=== PATIENT | female | born 1970 | race Caucasian/White ===

== ENCOUNTER 2020-10-06 07:36 | Day surgery (SDC) | payer BC ==
[~2020-10-06 07:36] MED LIST: IBUP600 PO; Robaxin500 MG PO
[2020-10-17 09:38] LABS: Performing Lab SYMBIODX; Test Name FISH
[2020-10-25] MEDS ORDERED: DULO60 PO (13:17)
[2020-10-25] MEDS ORDERED: MELO7.5 PO (13:17)
[2020-10-25] MEDS ORDERED: Amitriptyline H10 MG PO (13:17)
[2020-10-25] MEDS ORDERED: MULVITA PO (13:17)
[2020-10-25] MEDS ORDERED: PRAM.125 PO (13:18)
[2020-10-25] MEDS ORDERED: ZOLP5 PO (13:18)
[2020-10-25] MEDS ORDERED: OMEP20ER PO (13:18)
== END 2020-10-06 23:07 | disposition home or self-care (01) ==
LOC: MOI US 07:36 → MOI MAM 08:00 → MOI US 08:00 → MOI MAM 08:45 → MOI US 23:07
PROVIDERS: Pathology Clinical Pathology/Laboratory Medicine
DX: C50.912 Malignant neoplasm of unspecified site of left female breast (principal); Z17.0 Estrogen receptor positive status [ER+]
CPT/HCPCS: 19083; 77065; 88305; 88342; 88360; 88374; A4648

== ENCOUNTER 2020-10-23 09:54 | Day surgery (SDC) | payer BC ==
[2020-10-25] MEDS ORDERED: DULO60 PO (13:17)
[2020-10-25] MEDS ORDERED: Amitriptyline H10 MG PO (13:17)
[2020-10-25] MEDS ORDERED: MULVITA PO (13:17)
[2020-10-25] MEDS ORDERED: MELO7.5 PO (13:17)
[2020-10-25] MEDS ORDERED: PRAM.125 PO (13:18)
[2020-10-25] MEDS ORDERED: OMEP20ER PO (13:18)
[2020-10-25] MEDS ORDERED: ZOLP5 PO (13:18)
== END 2020-10-23 23:05 | disposition home or self-care (01) ==
LOC: MOI US 09:54
DX: C50.112 Malignant neoplasm of central portion of left female breast (principal)
CPT/HCPCS: 19285; 77065; A4648

== ENCOUNTER 2020-10-31 08:50 | Day surgery (SDC) | payer BC ==
[~2020-10-31] VITALS: Ht 170.2 cm; Wt 102.6 kg
[~2020-10-31 08:50] MED LIST changes: +Amitriptyline H10 MG PO; +DULO60 PO; +MELO7.5 PO; +MULVITA PO; +OMEP20ER PO; +PRAM.125 PO; +ZOLP5 PO
[2020-10-31] MEDS ORDERED: DIAZ10 PO (09:51)
--- NOTE | 2020-10-31 10:23 | NUR ---
Ambulatory in [facility] warming gown applied. Surgical site prepped with 2% Chlorhexidine cloth wipe. History, Chart, Medications and Allergies reviewed before start of procedure.History, Chart, Medications and Allergies reviewed before start of procedure.Lungs clear T/O to Auscultation. Patient confirms NPO status and agrees with scheduled surgery. Pre-Op teaching done. Pt verbalizes understanding. Patient States Post-Procedure ride home has been arranged. Patient reports completing Chlorhexadine shower X2 prior to admission to hospital.
--- NOTE | 2020-10-31 14:18 | NUR ---
JOSEPHINE RN REPORTED 25MCG FENTANYL DOSES DID NOT BRING PATIENT PAIN DOWN. PT ABLE TO REPOSITION SELF INTO A BETTER BREATHING POSITION. 02 SATS 96% ON RA. PT DENIES SOB. Dressing to procedure site clean, dry, intact with no visible drainage, swelling, erythema or bruising noted.BREAST BINDER IN PLACE. PT TOLERATING PO FOOD AND FLUID. WILL GIVE PO PAIN MED SOON AVAILABLE. GAVE PT 50MCGS OF IV FENT. WILL CONTINUE TO MONITOR.
--- NOTE | 2020-10-31 14:50 | NUR ---
PT RECEIVED 2 PAIN PILLS AND A TOTAL OF 100MCGS FENTANYL FOR UNCONTROLLED PAIN WITH GOOD RESULTS. PAIN AT TOLERATED LEVEL AT TIME OF DISCHARGE. Dressing to procedure site clean, dry, intact with no visible drainage, swelling, erythema or bruising noted. Discharge instructions reviewed with patient. Patient verbalizes understanding. Copy given to patient to take home. Patient up to Ambulate independently. Gait steady. Patient States Post-Procedure ride home has been arranged. Discharged via wheelchair to private car for ride home. ALL BELONINGS SENT HOME WITH PATIENT.
== END 2020-10-31 22:56 | disposition home or self-care (01) ==
LOC: NM 08:50 → ORSCMMR 08:50 → NM 09:00
PROVIDERS: Surgery
PROC: 0HBU0ZZ Excision of Left Breast, Open Approach (ICD-10-PCS; principal; 2020-10-31 10:00)
PROC: 07B60ZX Excision of Left Axillary Lymphatic, Open Approach, Diagnostic (ICD-10-PCS; principal; 2020-10-31 10:00)
DX: C50.112 Malignant neoplasm of central portion of left female breast (principal); C77.3 Secondary and unspecified malignant neoplasm of axilla and upper limb lymph nodes; I10 Essential (primary) hypertension; Z87.891 Personal history of nicotine dependence; M79.7 Fibromyalgia; Z79.899 Other long term (current) drug therapy; Z79.82 Long term (current) use of aspirin; E66.9 Obesity, unspecified; Z68.35 Body mass index [BMI] 35.0-35.9, adult
CPT/HCPCS: 38792; 88307; A9270; A9520; J0690; J1100; J1885; J2250; J2405; J2704; J3010; J7120; Q9968

== ENCOUNTER 2020-11-10 08:06 | Day surgery (SDC) | payer BC ==
[~2020-11-10] VITALS: Ht 170.2 cm; Wt 103.0 kg
[~2020-11-10 08:06] MED LIST changes: +DIAZ10 PO
[2020-11-10] MEDS ORDERED: DICL25ER PO (08:34)
--- NOTE | 2020-11-10 08:58 | NUR ---
Ambulatory in Day Surgery. Patient confirms NPO status and agrees with scheduled surgery. History, Chart, Medications and Allergies reviewed before start of procedure. Lungs clear T/O to Auscultation. Patient States Post-Procedure ride home has been arranged. + VOID.
--- NOTE | 2020-11-10 13:15 | NUR ---
REPORT GIVEN TO SUNITHA CELESTIN
--- NOTE | 2020-11-10 13:28 | NUR ---
Discharge instructions reviewed with patient. Patient verbalizes understanding. Copy given to patient to take home. Dressing to procedure site clean, dry, intact with no visible drainage, swelling, erythema or bruising noted. Pt tolerating po fluids/solids. Red sore bump noted on pt's right lower lip.
--- NOTE | 2020-11-10 13:54 | NUR ---
Discharged via wheelchair to private car for ride home.
== END 2020-11-10 13:55 | disposition home or self-care (01) ==
LOC: ORSCMMR 08:06 → ORD 09:45 → ORSCMMR 09:45
PROVIDERS: Surgery
PROC: 0HBU0ZZ Excision of Left Breast, Open Approach (ICD-10-PCS; principal; 2020-11-10 09:45)
DX: C50.512 Malignant neoplasm of lower-outer quadrant of left female breast (principal); Z17.0 Estrogen receptor positive status [ER+]; M79.7 Fibromyalgia; E66.9 Obesity, unspecified; Z68.35 Body mass index [BMI] 35.0-35.9, adult; Z79.899 Other long term (current) drug therapy
CPT/HCPCS: 88307; A9270; J0690; J1100; J1885; J2250; J2405; J2704; J3010; J7120

== ENCOUNTER 2020-12-06 07:53 | Day surgery (SDC) | payer BC ==
[~2020-12-06] VITALS: Ht 170.2 cm; Wt 105.3 kg
[~2020-12-06 07:53] MED LIST changes: +DICL25ER PO
[2020-12-06] MEDS ORDERED: MELOXICAM5 MG PO (08:22)
--- NOTE | 2020-12-06 10:38 | NUR ---
12/06/20 JAYY PUENTE CALL TO XRAY FOR CONFIRMATION OF MEDIPORT PLACEMENT. PT IN STEP DOWN. REMAINS NPO UNTIL XRAY.
== END 2020-12-06 16:47 | disposition home or self-care (01) ==
LOC: ORSCSDS 07:53
PROVIDERS: Surgery
PROC: 0JH60WZ Insertion of Totally Implantable Vascular Access Device into Chest Subcutaneous Tissue and Fascia, Open Approach (ICD-10-PCS; principal; 2020-12-06 09:00)
DX: C50.512 Malignant neoplasm of lower-outer quadrant of left female breast (principal); M79.7 Fibromyalgia; Z17.0 Estrogen receptor positive status [ER+]; I10 Essential (primary) hypertension; E66.9 Obesity, unspecified; Z68.36 Body mass index [BMI] 36.0-36.9, adult; Z79.899 Other long term (current) drug therapy
CPT/HCPCS: 77001; A9270; C1788; J0690; J1100; J1642; J2250; J2405; J2704; J3010

== ENCOUNTER → 2021-01-17 | Outpatient (CLI) | payer BC ==
[~2021-01-17] MED LIST changes: +MELOXICAM5 MG PO
[2021-01-17 10:16] LABS: Hematocrit 38.5 % (33.0-51.0); Hemoglobin 12.6 g/dL (11.5-16.0); Mean Corpuscular HGB 30.7 pg (26.0-34.0); Mean Corpuscular HGB Conc 32.7 g/dL (31.5-36.5); Mean Corpuscular Volume 94 fL (80-100); Mean Platelet Volume 9.9 fL (9.1-12.4); NRBC ABSOLUTE 0.04 K/mm3 (0.00-0.02); NRBC Auto 0.6 /100 WBC (0.0-0.2); Platelet Count 264 K/mm3 (150-400); RDW Coefficient Variation 14.1 % (11.7-14.2); RDW Standard Deviation 47.8 fL (35.1-46.3); Red Blood Cell Count 4.11 M/mm3 (3.80-5.20); White Blood Cell Count 6.46 K/mm3 (4.00-11.30)
[2021-01-17 11:36] LABS: BAND PERCENT MAN 10 % (0-8); BASOPHILS ABSOLUTE MAN 0.12 K/mm3 (0.00-0.23); BASOPHILS PERCENT MAN 2 % (0-2); EOSINOPHILS ABSOLUTE MAN 0.12 K/mm3 (0.00-0.68); EOSINOPHILS PERCENT MAN 2 % (0-6); LYMPHOCYTES ABSOLUTE MAN 2.19 K/mm3 (0.84-5.20); LYMPHOCYTES PERCENT MAN 34 % (21-46); METAMYELOCYTE ABSOLUTE MAN 0.19 K/mm3 (0.00-0.00); METAMYELOCYTE PERCENT MAN 3 % (0-0); MONOCYTES ABSOLUTE MAN 0.06 K/mm3 (0.16-1.47); MONOCYTES PERCENT MAN 1 % (4-13); MYELOCYTE ABSOLUTE MAN 0.25 K/mm3 (0.00-0.00); MYELOCYTE PERCENT MAN 4 % (0-0); NEUTROPHILS ABSOLUTE MAN 3.48 K/mm3 (1.96-9.15); SEG NEUTROPHILS PERCENT MAN 44 % (41-73); TOTAL CELLS COUNTED 100
== END | disposition home or self-care (01) ==
LOC: LAB SHORT 10:11
PROVIDERS: Internal Medicine Hematology & Oncology
DX: C50.919 Malignant neoplasm of unspecified site of unspecified female breast (principal)
CPT/HCPCS: 85025

== ENCOUNTER → 2021-02-21 | Outpatient (CLI) | payer BC ==
[2021-02-21 09:42] LABS: Hematocrit 29.4 % (33.0-51.0); Hemoglobin 9.9 g/dL (11.5-16.0); Mean Corpuscular HGB 31.2 pg (26.0-34.0); Mean Corpuscular HGB Conc 33.7 g/dL (31.5-36.5); Mean Corpuscular Volume 93 fL (80-100); Mean Platelet Volume 9.5 fL (9.1-12.4); Platelet Count 213 K/mm3 (150-400); RDW Coefficient Variation 16.6 % (11.7-14.2); RDW Standard Deviation 56.3 fL (35.1-46.3); Red Blood Cell Count 3.17 M/mm3 (3.80-5.20)
[2021-02-21 09:47] LABS: White Blood Cell Count 0.39 K/mm3 (4.00-11.30)
[2021-02-21 10:10] LABS: BAND PERCENT MAN 4 % (0-8); BASOPHILS ABSOLUTE MAN 0.01 K/mm3 (0.00-0.23); BASOPHILS PERCENT MAN 4 % (0-2); EOSINOPHILS ABSOLUTE MAN 0.01 K/mm3 (0.00-0.68); EOSINOPHILS PERCENT MAN 4 % (0-6); LYMPHOCYTES ABSOLUTE MAN 0.13 K/mm3 (0.84-5.20); LYMPHOCYTES PERCENT MAN 34 % (21-46); MONOCYTES ABSOLUTE MAN 0.15 K/mm3 (0.16-1.47); MONOCYTES PERCENT MAN 40 % (4-13); MYELOCYTE PERCENT MAN 2 % (0-0); NEUTROPHILS ABSOLUTE MAN 0.06 K/mm3 (1.96-9.15); SEG NEUTROPHILS PERCENT MAN 12 % (41-73); TOTAL CELLS COUNTED 50
== END | disposition home or self-care (01) ==
LOC: LAB 09:36 → LAB SHORT 09:36
PROVIDERS: Internal Medicine Hematology & Oncology
DX: C50.919 Malignant neoplasm of unspecified site of unspecified female breast (principal)
CPT/HCPCS: 85025

== ENCOUNTER 2021-04-12 13:24 | Day surgery (SDC) | payer OTHER | END 2021-04-12 23:34 | disposition home or self-care (01) | LOC: RAD 13:24 | DX: C50.812 Malignant neoplasm of overlapping sites of left female breast (principal); D70.1 Agranulocytosis secondary to cancer chemotherapy; I97.89 Other postprocedural complications and disorders of the circulatory system, not elsewhere classified | CPT/HCPCS: 36598; Q9967 ==

== ENCOUNTER → 2021-08-27 | Outpatient (CLI) | payer OTHER | END | disposition home or self-care (01) | LOC: LAB SHORT 13:55 | DX: N39.0 Urinary tract infection, site not specified (principal) | CPT/HCPCS: 87086 ==

== ENCOUNTER → 2022-12-07 | Outpatient (CLI) | payer OTHER, BC | END | disposition home or self-care (01) | LOC: LAB SHORT 09:15 → LAB 09:15 | DX: R35.0 Frequency of micturition (principal) | CPT/HCPCS: 87086 ==

== ENCOUNTER 2025-03-06 16:40 | Emergency (ER) | payer OTHER ==
[~2025-03-06] VITALS: Ht 170.2 cm; Wt 98.0 kg
[2025-03-06] MEDS ORDERED: Ketorolac Tromethamine 15mg Vial IV ONE (17:05)
[2025-03-06 17:29] LABS: Source, Urine Clean Catch
[2025-03-06 17:38] LABS: BASOPHILS ABSOLUTE AUTO 0.05 K/mm3 (0.00-0.23); BASOPHILS PERCENT AUTO 1 % (0-2); EOSINOPHILS ABSOLUTE AUTO 0.22 K/mm3 (0.00-0.68); EOSINOPHILS PERCENT AUTO 2 % (0-6); Hematocrit 44.1 % (33.0-51.0); Hemoglobin 14.7 g/dL (11.5-16.0); IMMATURE GRAN ABSOLUTE AUTO 0.07 K/mm3 (0.00-0.10); IMMATURE GRAN PERCENT AUTO 1 % (0-1); LYMPHOCYTES ABSOLUTE AUTO 1.95 K/mm3 (0.84-5.20); LYMPHOCYTES PERCENT AUTO 19 % (21-46); MONOCYTES ABSOLUTE AUTO 0.84 K/mm3 (0.16-1.47); MONOCYTES PERCENT AUTO 8 % (4-13); Mean Corpuscular HGB Conc 33.3 g/dL (31.5-36.5); Mean Corpuscular Volume 93 fL (80-100); NEUTROPHILS ABSOLUTE AUTO 7.20 K/mm3 (1.96-9.15); NEUTROPHILS PERCENT AUTO 70 % (41-73); NRBC ABSOLUTE 0.00 K/mm3 (0.00-0.02); NRBC Auto 0.0 /100 WBC (0.0-0.2); Platelet Count 375 K/mm3 (150-400); RDW Coefficient Variation 13.8 % (11.7-14.2); RDW Standard Deviation 47.3 fL (35.1-46.3)
[2025-03-06 17:39] LABS: Bilirubin, Urine Neg (Neg); Glucose Qualitative, Urine 4+ (Neg); Ketones, Urine Neg (Neg); Leukocyte Esterase, Urine 3+ (Neg); Protein, Urine 3+ (Neg); Specific Gravity, Urine 1.015 (1.003-1.022); Urobilinogen, Urine NORM (Normal)
[2025-03-06 18:15] LABS: Alanine Aminotransfer (ALT/SGP 84.0 U/L (12-78); Albumin, Blood 3.4 g/dL (3.4-5.0); Albumin/Globulin Ratio 0.8 (0.8-1.8); Anion Gap 9.0 mmol/L (3-11); Aspartate Aminotrans (AST/SGOT 33.0 U/L (12-37); Bilirubin, Total 0.4 mg/dL (0.1-1.0); Blood Urea Nitrogen 17.0 mg/dL (8-24); CO2, Blood 22.0 mmol/L (21-32); Calcium, Blood 9.7 mg/dL (8.5-10.1); Chloride, Blood 107.0 mmol/L (98-108); Creatinine, Blood 1.03 mg/dL (0.40-1.00); Globulin, Blood 4.5 g/dL (2.2-4.0); Glucose, Blood 133.0 mg/dL (70-99); Potassium, Blood 3.3 mmol/L (3.5-5.5); Sodium, Blood 135.0 mmol/L (136-145); Total Protein, Blood 7.9 g/dL (6.4-8.2)
[2025-03-06 19:32] LABS: Color, Urine Pale Yellow (P-Yellow)
[2025-03-06 19:34] LABS: White Blood Cells, Urine TNTC /hpf (0-5)
[2025-03-06] MEDS ORDERED: CefTRIAXone Sodium 1,000 MG in NS 100 ML IV ONE (20:05)
[2025-03-06] MEDS ORDERED: CEFP200 PO (20:05)
[2025-03-06 21:15] VITALS: BP 131/78
== END 2025-03-06 21:33 | disposition home or self-care (01) ==
LOC: ER 16:40
PROVIDERS: Student in an Organized Health Care Education/Training Program
DX: N12 Tubulo-interstitial nephritis, not specified as acute or chronic (principal); E87.1 Hypo-osmolality and hyponatremia; E87.6 Hypokalemia; Z87.891 Personal history of nicotine dependence; Z88.1 Allergy status to other antibiotic agents; Z88.5 Allergy status to narcotic agent; Z79.899 Other long term (current) drug therapy
CPT/HCPCS: 74176; 80053; 81001; 83690; 85025; 87086; 87147; 96365; 96375; 99284-25; J0696; J1885

== ENCOUNTER → 2025-04-19 | Outpatient (CLI) | payer OTHER ==
[~2025-04-19] MED LIST changes: +CEFP200 PO
[2025-04-19 18:38] LABS: BASOPHILS ABSOLUTE AUTO 0.05 K/mm3 (0.00-0.23); BASOPHILS PERCENT AUTO 1 % (0-2); EOSINOPHILS ABSOLUTE AUTO 0.20 K/mm3 (0.00-0.68); EOSINOPHILS PERCENT AUTO 3 % (0-6); Hematocrit 44.1 % (33.0-51.0); Hemoglobin 14.2 g/dL (11.5-16.0); IMMATURE GRAN ABSOLUTE AUTO 0.02 K/mm3 (0.00-0.10); IMMATURE GRAN PERCENT AUTO 0 % (0-1); LYMPHOCYTES ABSOLUTE AUTO 1.77 K/mm3 (0.84-5.20); LYMPHOCYTES PERCENT AUTO 26 % (21-46); MONOCYTES ABSOLUTE AUTO 0.36 K/mm3 (0.16-1.47); MONOCYTES PERCENT AUTO 5 % (4-13); Mean Corpuscular HGB Conc 32.2 g/dL (31.5-36.5); Mean Corpuscular Volume 96 fL (80-100); NEUTROPHILS ABSOLUTE AUTO 4.49 K/mm3 (1.96-9.15); NEUTROPHILS PERCENT AUTO 65 % (41-73); NRBC ABSOLUTE 0.00 K/mm3 (0.00-0.02); NRBC Auto 0.0 /100 WBC (0.0-0.2); Platelet Count 278 K/mm3 (150-400); RDW Coefficient Variation 14.5 % (11.7-14.2); RDW Standard Deviation 51.5 fL (35.1-46.3)
[2025-04-19 18:45] LABS: Alanine Aminotransfer (ALT/SGP 33.0 U/L (12-78); Albumin, Blood 3.7 g/dL (3.4-5.0); Albumin/Globulin Ratio 1.0 (0.8-1.8); Anion Gap 9.0 mmol/L (3-11); Aspartate Aminotrans (AST/SGOT 16.0 U/L (12-37); Bilirubin, Total 0.3 mg/dL (0.1-1.0); Blood Urea Nitrogen 19.0 mg/dL (8-24); CO2, Blood 22.0 mmol/L (21-32); Calcium, Blood 9.2 mg/dL (8.5-10.1); Chloride, Blood 110.0 mmol/L (98-108); Creatinine, Blood 0.97 mg/dL (0.40-1.00); Globulin, Blood 3.7 g/dL (2.2-4.0); Glucose, Blood 86.0 mg/dL (70-99); Potassium, Blood 3.5 mmol/L (3.5-5.5); Sodium, Blood 137.0 mmol/L (136-145); Thyroid Stimulating Hormone 1.79 uIU/mL (0.360-4.800); Total Protein, Blood 7.4 g/dL (6.4-8.2)
== END ==
LOC: LAB SHORT 11:17 → LAB 11:17
PROVIDERS: Nurse Practitioner Family
DX: I10 Essential (primary) hypertension (principal); R53.81 Other malaise
CPT/HCPCS: 80053; 84443; 85025